=== PATIENT | male | born 1955 | race Caucasian/White ===

== ENCOUNTER 2020-01-02 07:13 | Day surgery (SDC) | payer OTHER, SELFPAY ==
[2019-12-29 09:33] LABS: BASOPHIL % 0.4 % (0-2); PLATELET COUNT 176 x10^3mcL (130-400); RED CELL DISTRIBUTION WIDTH 13.3 % (11.5-14.5)
[2019-12-29 10:10] LABS: CALCIUM 8.6 mg/dL (8.5-10.1); CARBON DIOXIDE 25.9 mmol/L (21-32); CHLORIDE SERUM 104 mmol/L (98-107); CREATININE SERUM 0.9 mg/dL (0.7-1.3); GFR1 > 60 mL/min; GLUCOSE SERUM 127 mg/dL (74-106); POTASSIUM SERUM 4.1 mmol/L (3.5-5.1); SODIUM SERUM 139 mmol/L (136-145)
[2019-12-29 11:21] LABS: microscopic required? NO
[2019-12-29 11:46] LABS: UA SPECIFIC GRAVITY 1.025 (1.005-1.035); urine erythrocyte NEGATIVE (NEGATIVE)
[2020-01-02] VITALS (13 sets, daily range): BP systolic 117–152; BP diastolic 64–99
[~2020-01-02] VITALS: Ht 182.9 cm; Wt 80.7 kg
== END 2020-01-02 17:05 | disposition home or self-care (01) ==
LOC: DS 07:13 → OR 10:00 → DS 17:05
PROVIDERS: ATTEND Internal Medicine Cardiovascular Disease
DX: R07.9 Chest pain, unspecified (principal); I27.20 Pulmonary hypertension, unspecified; I25.10 Atherosclerotic heart disease of native coronary artery without angina pectoris; Z11.59 Encounter for screening for other viral diseases; I48.20 Chronic atrial fibrillation, unspecified; I08.0 Rheumatic disorders of both mitral and aortic valves; I10 Essential (primary) hypertension; E78.5 Hyperlipidemia, unspecified; Z79.01 Long term (current) use of anticoagulants; R73.03 Prediabetes
CPT/HCPCS: CLHCL; 36600; C1760; C1769; C1894; J1200; J1644; J2001; J2250; J3010; J7040; J7050; Q0092; Q9967; U0003-CS